=== PATIENT | female | born 1970 | race African-American/Black ===

== ENCOUNTER 2018-09-30 22:16 | Emergency (ER) | payer OTHER ==
[~2018-09-30] VITALS: Ht 175.3 cm; Wt 195.0 kg
[2018-10-01] VITALS: BP 135/74
[2018-10-01] MEDS ORDERED: HYDROCODONE/ACETAMINOPHEN 5-325 MG TABLET PO ONE (00:30)
== END 2018-10-01 00:31 | disposition home or self-care (01) ==
LOC: EMS 22:17
DX: K08.89 Other specified disorders of teeth and supporting structures (principal)